=== PATIENT | male | born 1995 | race Two or more races ===

== ENCOUNTER 2022-04-14 15:54 | Emergency (ER) | payer SELFPAY ==
[~2022-04-14] VITALS: Ht 193 cm; Wt 108.9 kg
[2022-04-14 16:28] VITALS: BP 125/71
[2022-04-14] MEDS ORDERED: FLUORESCEIN SODIUM OPHTH 1 EA STRIP ONE ×2 (16:44→16:58)
[2022-04-14] MEDS: TETRAcaine 5 ML BOTTLE EACHEYE ONE (17:01)
[2022-04-14] MEDS: FLUORESCEIN SODIUM OPHTH 1 EA STRIP OP ONE (17:01)
--- NOTE | 2022-04-14 18:00 | NUR ---
EMT AT BEDSIDE FOR SPLINT APPLICATION
[2022-04-14] MEDS ORDERED: OFLO5DRO RIGHTEYE (18:02)
--- NOTE | 2022-04-14 18:13 | NUR ---
Patient discharged to home in stable condition. Written and verbal after care instructions given. Patient verbalizes understanding of instruction.
== END 2022-04-14 18:17 | disposition home or self-care (01) ==
LOC: ER 16:07
DX: S62.620A Displaced fracture of middle phalanx of right index finger, initial encounter for closed fracture (principal); H10.9 Unspecified conjunctivitis; W22.8XXA Striking against or struck by other objects, initial encounter; Y93.89 Activity, other specified; Y92.89 Other specified places as the place of occurrence of the external cause; Y99.8 Other external cause status
CPT/HCPCS: 73120-TC

== ENCOUNTER 2024-11-24 20:41 | Emergency (ER) | payer MEDICAID ==
[~2024-11-24] VITALS: Ht 193 cm; Wt 90.7 kg
[~2024-11-24 20:41] MED LIST: OFLO5DRO RIGHTEYE
[2024-11-24 22:16] VITALS: BP 122/72; TEMP 98.1; O2SAT 99
== END 2024-11-24 22:17 | disposition home or self-care (01) ==
LOC: ER 20:48
DX: J06.9 Acute upper respiratory infection, unspecified (principal)